=== PATIENT | male | born 1970 | race Caucasian/White ===

== ENCOUNTER 2023-05-10 15:42 | Emergency (ER) | payer OTHER ==
[2023-05-10] MEDS ORDERED: FAMOTIDINE20 MG PO (15:51)
[2023-05-10] MEDS ORDERED: COZAAR50 MG PO (15:51)
[2023-05-10 16:03] LABS: BASOPHILS 0.8 % (0-2); EOSINOPHILS 2.3 % (0-6); HEMATOCRIT 43.1 % (35.0-50.0); HEMOGLOBIN 14.6 g/dL (12.0-18.0); LYMPHOCYTES 40.2 % (24-44); MCHC 33.9 g/dl (30-36); MCV 91.3 fl (81-99); MONOCYTES 9.4 % (0-12); NEUTROPHILS 47.3 % (39-80); PLATELET COUNT 175 K/uL (140-440); RBC 4.72 M/ul (4.3-5.7); RDW 12.4 (10.5-15.0)
[2023-05-10 16:15] LABS: ALBUMIN/GLOBULIN RATIO 1.11 (1.1-2.4); BUN/CREATININE RATIO 13.93 (6.0-28.6); CALCIUM 9.3 mg/dL (8.5-10.1); CREATININE, SERUM 1.65 mg/dL (0.70-1.30); PROTEIN, TOTAL 7.6 g/dL (6.4-8.2)
[2023-05-10] MEDS ORDERED: HYDROCODON-ACE1 EA11 PO (18:08)
[2023-05-10 18:31] VITALS: BP 128/89
--- NOTE | 2023-05-11 15:37 | EKG ---
[facility] [address] [facility] [place], [place] [address] Signed Sinus tachycardia Otherwise normal ECG No previous ECGs available Confirmed by TIFFANIE MENDOZA MD ([id number]) on 05/11/2023 3:37:42 PM Electronically Signed By: TIFFANIE MENDOZA 05/11/23 1537 PATIENT NAME: SUDHAKAR RUIZ Electrocardiogram DATE OF : 66 PHYSICIAN: TIFFANIE MENDOZA REPORT #: [id number] REPORT IS CONFIDENTIAL AND NOT TO BE RELEASED WITHOUT AUTHORIZATION
== END 2023-05-10 18:32 | disposition home or self-care (01) ==
LOC: ED 15:42
PROVIDERS: Emergency Medicine
DX: R07.9 Chest pain, unspecified (principal); I10 Essential (primary) hypertension; R00.0 Tachycardia, unspecified
CPT/HCPCS: 36415; 71045; 71260; 80053; 84484; 85025; 85379; 93005; 93010; 99285-25; J1170; J2405; Q9967